=== PATIENT | male | born 1935 | race Asian ===

== ENCOUNTER 2021-07-08 11:35 | Emergency (ER) | payer MEDICARE, OTHER ==
[~2021-07-08] VITALS: Ht 149.9 cm; Wt 60.0 kg
[~2021-07-08 11:35] MED LIST: TAMS-13 PO
[2021-07-08 11:48] VITALS: BP 195/107
== END 2021-07-08 12:53 | disposition home or self-care (01) ==
LOC: EMS 11:35 → EDBD 11:35 → EMS 12:53
DX: R33.9 Retention of urine, unspecified (principal); E11.9 Type 2 diabetes mellitus without complications; I10 Essential (primary) hypertension; F17.210 Nicotine dependence, cigarettes, uncomplicated
CPT/HCPCS: 82962; 99283

== ENCOUNTER 2021-07-12 10:50 | Emergency (ER) | payer MEDICARE, OTHER ==
[~2021-07-12] VITALS: Ht 162.6 cm; Wt 60.9 kg
[2021-07-12 12:39] VITALS: BP 147/90
== END 2021-07-12 12:49 | disposition home or self-care (01) ==
LOC: EMS 10:52
DX: R33.9 Retention of urine, unspecified (principal); I10 Essential (primary) hypertension; E11.9 Type 2 diabetes mellitus without complications; F17.210 Nicotine dependence, cigarettes, uncomplicated; Z79.899 Other long term (current) drug therapy
CPT/HCPCS: 99281; 99284; Z7502

== ENCOUNTER 2022-07-05 09:38 | Emergency (ER) | payer MEDICARE, OTHER ==
[~2022-07-05] VITALS: Ht 165.1 cm; Wt 63.6 kg
[2022-07-05 10:25] VITALS: BP 180/98
[2022-07-05 10:25] LABS: GLUCOSE,POINT OF CARE 86 MG/DL (70-110)
[2022-07-05 13:06] LABS: APPEARANCE,URINE CLEAR (CLEAR); BILIRUBIN,URINE NEGATIVE (NEGATIVE); GLUCOSE, URINE (UA) NEGATIVE (NEGATIVE); KETONES,URINE NEGATIVE (NEGATIVE); LEUKOCYTE ESTERASE ,URINE LARGE (NEGATIVE); NITRATE,URINE NEGATIVE (NEGATIVE); OCCULT BLOOD,URINE SMALL (NEGATIVE); PROTEIN,URINE NEGATIVE (NEGATIVE); SPECIFIC GRAVITIY, URINE 1.007 (1.003-1.030); UROBILINOGEN,URINE <=1.0 mg/dL (<=1.0)
[2022-07-05 13:20] LABS: BACTERIA,URINE Many /HPF (None Seen)
[2022-07-05] MEDS ORDERED: CEPHALEXIN MONOHYDRATE 500 MG CAPSULE PO ONE (13:30)
[2022-07-05] MEDS ORDERED: CEPH-558 PO (13:33)
== END 2022-07-05 14:10 | disposition home or self-care (01) ==
LOC: EMS 09:39
DX: N39.0 Urinary tract infection, site not specified (principal); Z46.6 Encounter for fitting and adjustment of urinary device; F17.210 Nicotine dependence, cigarettes, uncomplicated; E11.9 Type 2 diabetes mellitus without complications; I10 Essential (primary) hypertension; N40.1 Benign prostatic hyperplasia with lower urinary tract symptoms; Z89.029 Acquired absence of unspecified finger(s)
CPT/HCPCS: 81001; 82962; 87086; 87186; 99283

== ENCOUNTER 2022-10-19 09:08 | Inpatient (IN) | payer MEDICARE, OTHER ==
[~2022-10-19] VITALS: Ht 170.2 cm; Wt 54.9 kg
[~2022-10-19 09:08] MED LIST changes: +CEPH-558 PO; -TAMS-13 PO
[2022-10-19] MEDS ORDERED: ACETAMINOPHEN 1000 MG/ISO-OSM 100 ML IV ONE (09:30)
[2022-10-19] MEDS ORDERED: 0.9% SODIUM CHLORIDE 10 ML SYRINGE IVP PRN ×2 (09:30→13:00)
[2022-10-19] MEDS ORDERED: SODIUM CHLORIDE 0.9% 1,000 ML IV ONE (09:30)
[2022-10-19] MEDS ORDERED: CefTRIAXone 1 GM/DEXTROSE 50 ML IV ONE (09:45)
[2022-10-19 09:53] LABS: BASOPHILS % (AUTO) 0.4 % (0.0-2.0); HEMATOCRIT 42.4 % (41-53); HEMOGLOBIN 13.9 g/dL (13.5-17.5); LYMPHOCYTES # (AUTO) 0.9 K/uL (1.0-4.8); LYMPHOCYTES % (AUTO) 12.5 % (22.0-44.0); MEAN CORPUSCULAR HEMOGLOBIN 23.2 pg (26.0-34.0); MEAN CORPUSCULAR HGB CONC 32.8 G/dL (31.0-37.0); MEAN CORPUSCULAR VOLUME 71 fL (80-100); MONOCYTES % (AUTO) 14.5 % (2.0-9.0); NEUTROPHILS # (AUTO) 4.8 K/uL (1.8-7.7); NEUTROPHILS % (AUTO) 69.6 % (40.0-70.0); PLATELET COUNT (AUTO) 299 K/uL (150-450); RED BLOOD CELL COUNT(AUTO) 5.99 MIL/uL (4.50-5.90); RED CELL DISTRIBUTION WIDTH 16.6 % (11.5-14.5)
[2022-10-19 09:56] LABS: PROTHROMBIN TIME 10.2 SEC (9.4-11.6)
[2022-10-19 10:03] LABS: COVID AG,FIA SOURCE NASOPHARYNGEAL
[2022-10-19 10:05] LABS: B-TYPE NATRIURETIC PEPTIDE 111 pg/mL (0-100)
[2022-10-19 10:17] LABS: ANION GAP 9 mmol/L (8-16); CARBON DIOXIDE 27 mmol/L (22-29); CHLORIDE 98 mmol/L (98-107); CREATININE 1.13 mg/dL (0.60-1.30); GLUCOSE,RANDOM 164 mg/dL (70-110); POTASSIUM 3.6 mmol/L (3.5-5.1); SODIUM SERUM 134 mmol/L (136-145); UREA NITROGEN, BLOOD 10 mg/dL (7-18)
[2022-10-19 10:21] LABS: GLOMERULAR FILTR. RATE CALC > 60 mL/min (>60)
[2022-10-19 10:22] LABS: ALANINE AMINOTRANSFERASE 243 U/L (12-78); ALBUMIN 3.3 g/dL (3.4-5.0); ALKALINE PHOSPHATASE 242 U/L (46-116); ASPARTATE AMINOTRANSFERASE 121 U/L (15-37); BILIRUBIN,TOTAL 2.3 mg/dL (0.1-1.0); CREATINE KINASE, TOTAL ONLY 32 U/L (39-308); PHOSPHORUS 2.4 mg/dL (2.5-4.9); TOTAL PROTEIN, SERUM 7.9 g/dL (6.4-8.2)
[2022-10-19 10:24] LABS: LACTIC ACID 1.5 mmol/L (0.4-2.0)
[2022-10-19 10:36] LABS: APPEARANCE,URINE HAZY (CLEAR); BILIRUBIN,URINE NEGATIVE (NEGATIVE); GLUCOSE, URINE (UA) NEGATIVE (NEGATIVE); KETONES,URINE NEGATIVE (NEGATIVE); LEUKOCYTE ESTERASE ,URINE MODERATE (NEGATIVE); NITRATE,URINE NEGATIVE (NEGATIVE); OCCULT BLOOD,URINE MODERATE (NEGATIVE); PROTEIN,URINE 30-70 mg/dL (NEGATIVE); SPECIFIC GRAVITIY, URINE 1.017 (1.003-1.030)
[2022-10-19 10:36] LABS: INFLUENZA TYPE A NEGATIVE FOR TYPE A (NEGATIVE); INFLUENZA TYPE B NEGATIVE FOR TYPE B (NEGATIVE)
[2022-10-19 11:14] LABS: SQUAMOUS EPITHELIAL CELL,UR Few /LPF (None Seen)
[2022-10-19 11:16] LABS: BACTERIA,URINE Many /HPF (None Seen)
[2022-10-19] MEDS ORDERED: SODIUM CHLORIDE 0.9% 1,300 ML IV ONE (12:00)
[2022-10-19] MEDS ORDERED: ONDANSETRON HCL 4 MG/2 ML VIAL IVP PRN ×2 (13:00→18:45)
[2022-10-19] MEDS ORDERED: HydrALAZINE HCL 20 MG/ML VIAL IVP PRN (14:45)
[2022-10-19] MEDS ORDERED: BISACODYL 10 MG RECTAL RECTAL SUPPOSITORY PR PRN (18:45)
[2022-10-19] MEDS ORDERED: MAGNESIUM HYDROXIDE SUSPENSION 30 ML UDCUP PO PRN (18:45)
[2022-10-19] MEDS ORDERED: MORPHINE SULFATE 2 MG/ML SYRINGE IVP PRN (18:45)
[2022-10-19] MEDS ORDERED: IPRATROPIUM BROMIDE 0.5 MG/2.5 ML NEB SOLUTION NEB PRN (18:45)
[2022-10-19] MEDS ORDERED: ALBUTEROL SULFATE 2.5 MG/0.5 ML NEB SOLUTION NEB PRN (18:45)
[2022-10-19] MEDS ORDERED: ACETAMINOPHEN 325 MG TABLET PO PRN (18:45)
[2022-10-19] MEDS ORDERED: ZOLPIDEM TARTRATE 5 MG TABLET PO PRN (18:45)
[2022-10-19] MEDS ORDERED: REMDESIVIR 200 MG in SODIUM CHLORIDE 0.9% 250 ML IV ONE (19:00)
[2022-10-19 19:46] VITALS: BP 123/78
[2022-10-19] MEDS: DOCUSATE SODIUM 100 MG CAPSULE PO SCH (20:53)
[2022-10-19] MEDS ORDERED: GuaiFENesin/D-METHORPHAN/PHENYLEPH 5 ML LIQUID ORAL.SYG PO PRN (23:45)
[2022-10-19] MEDS: HEPARIN SODIUM,PORCINE 5,000 UNITS/ML VIAL SQ SCH (23:54)
[2022-10-20 00:27] VITALS: BP 151/89
[2022-10-20 04:53] VITALS: BP 152/85
[2022-10-20 08:19] LABS: BASOPHILS % (AUTO) 0.4 % (0.0-2.0); EOSINOPHILS % (AUTO) 0.5 % (1.0-6.0); HEMATOCRIT 41.6 % (41-53); HEMOGLOBIN 13.5 g/dL (13.5-17.5); LYMPHOCYTES # (AUTO) 1.2 K/uL (1.0-4.8); LYMPHOCYTES % (AUTO) 22.8 % (22.0-44.0); MEAN CORPUSCULAR HEMOGLOBIN 23.1 pg (26.0-34.0); MEAN CORPUSCULAR HGB CONC 32.4 G/dL (31.0-37.0); MEAN CORPUSCULAR VOLUME 71 fL (80-100); MONOCYTES % (AUTO) 18.6 % (2.0-9.0); NEUTROPHILS % (AUTO) 57.7 % (40.0-70.0); PLATELET COUNT (AUTO) 279 K/uL (150-450); RED BLOOD CELL COUNT(AUTO) 5.84 MIL/uL (4.50-5.90); RED CELL DISTRIBUTION WIDTH 16.5 % (11.5-14.5)
[2022-10-20 08:27] LABS: ALANINE AMINOTRANSFERASE 211 U/L (12-78); ALBUMIN 2.8 g/dL (3.4-5.0); ALKALINE PHOSPHATASE 205 U/L (46-116); ANION GAP 2 mmol/L (8-16); ASPARTATE AMINOTRANSFERASE 120 U/L (15-37); BILIRUBIN,TOTAL 1.8 mg/dL (0.1-1.0); CALCIUM, TOTAL 8.8 mg/dL (8.8-10.5); CARBON DIOXIDE 29 mmol/L (22-29); CHLORIDE 99 mmol/L (98-107); CREATININE 0.98 mg/dL (0.60-1.30); GLUCOSE,RANDOM 84 mg/dL (70-110); POTASSIUM 4.1 mmol/L (3.5-5.1); SODIUM SERUM 130 mmol/L (136-145); UREA NITROGEN, BLOOD 10 mg/dL (7-18)
[2022-10-20 08:28] LABS: GLOMERULAR FILTR. RATE CALC > 60 mL/min (>60)
[2022-10-20 08:37] VITALS: BP 152/90
[2022-10-20] MEDS: DOCUSATE SODIUM 100 MG CAPSULE PO SCH ×2 (09:32→20:26)
[2022-10-20] MEDS: LEVOFLOXACIN 500 MG TABLET PO SCH (09:32)
[2022-10-20] MEDS: PANTOPRAZOLE SODIUM 40 MG/VIAL IVP SCH (09:32)
[2022-10-20] MEDS: HEPARIN SODIUM,PORCINE 5,000 UNITS/ML VIAL SQ SCH ×3 (09:32→23:36)
[2022-10-20] MEDS: AmLODIPine BESYLATE 5 MG TABLET PO SCH (11:18)
[2022-10-20 12:15] VITALS: BP 128/74
[2022-10-20 15:50] VITALS: BP 126/74
[2022-10-20] MEDS: REMDESIVIR 100 MG in SODIUM CHLORIDE 0.9% 250 ML IV SCH (20:26)
[2022-10-20 20:28] VITALS: BP 134/76
[2022-10-21 00:11] VITALS: BP 151/80
[2022-10-21 05:30] VITALS: BP 134/72
[2022-10-21 06:46] LABS: ALANINE AMINOTRANSFERASE 171 U/L (12-78); ALBUMIN 2.5 g/dL (3.4-5.0); ALKALINE PHOSPHATASE 175 U/L (46-116); ANION GAP 4 mmol/L (8-16); ASPARTATE AMINOTRANSFERASE 97 U/L (15-37); BILIRUBIN,TOTAL 1.4 mg/dL (0.1-1.0); CALCIUM, TOTAL 8.4 mg/dL (8.8-10.5); CARBON DIOXIDE 29 mmol/L (22-29); CHLORIDE 102 mmol/L (98-107); CREATININE 0.93 mg/dL (0.60-1.30); GLUCOSE,RANDOM 80 mg/dL (70-110); POTASSIUM 3.8 mmol/L (3.5-5.1); SODIUM SERUM 135 mmol/L (136-145); TOTAL PROTEIN, SERUM 6.2 g/dL (6.4-8.2); UREA NITROGEN, BLOOD 13 mg/dL (7-18)
[2022-10-21 06:48] LABS: GLOMERULAR FILTR. RATE CALC > 60 mL/min (>60)
[2022-10-21 08:17] VITALS: BP 153/80
[2022-10-21] MEDS: PANTOPRAZOLE SODIUM 40 MG/VIAL IVP SCH (08:41)
[2022-10-21] MEDS: AmLODIPine BESYLATE 5 MG TABLET PO SCH (08:41)
[2022-10-21] MEDS: HYDROCODONE/ACETAMINOPHEN 5-325 MG TABLET PO PRN (08:41)
[2022-10-21] MEDS: DOCUSATE SODIUM 100 MG CAPSULE PO SCH ×2 (08:41→19:54)
[2022-10-21] MEDS: HEPARIN SODIUM,PORCINE 5,000 UNITS/ML VIAL SQ SCH ×2 (08:41→16:33)
[2022-10-21] MEDS: LEVOFLOXACIN 500 MG TABLET PO SCH (08:41)
[2022-10-21 12:05] VITALS: BP 131/72
[2022-10-21 15:30] VITALS: BP 127/74
[2022-10-21] MEDS: REMDESIVIR 100 MG in SODIUM CHLORIDE 0.9% 250 ML IV SCH (19:54)
[2022-10-21 20:22] VITALS: BP 129/76
[2022-10-22] MEDS: HEPARIN SODIUM,PORCINE 5,000 UNITS/ML VIAL SQ SCH ×3 (00:09→16:49)
[2022-10-22 04:40] VITALS: BP 135/78
[2022-10-22 06:06] LABS: ALANINE AMINOTRANSFERASE 152 U/L (12-78); ALBUMIN 2.5 g/dL (3.4-5.0); ALKALINE PHOSPHATASE 171 U/L (46-116); ANION GAP 2 mmol/L (8-16); ASPARTATE AMINOTRANSFERASE 91 U/L (15-37); BILIRUBIN,TOTAL 1.3 mg/dL (0.1-1.0); CALCIUM, TOTAL 8.5 mg/dL (8.8-10.5); CARBON DIOXIDE 30 mmol/L (22-29); CHLORIDE 101 mmol/L (98-107); CREATININE 0.95 mg/dL (0.60-1.30); GLUCOSE,RANDOM 88 mg/dL (70-110); POTASSIUM 3.9 mmol/L (3.5-5.1); SODIUM SERUM 133 mmol/L (136-145); TOTAL PROTEIN, SERUM 6.5 g/dL (6.4-8.2); UREA NITROGEN, BLOOD 12 mg/dL (7-18)
[2022-10-22 06:10] LABS: GLOMERULAR FILTR. RATE CALC > 60 mL/min (>60)
[2022-10-22 08:20] VITALS: BP 130/70
[2022-10-22] MEDS: LEVOFLOXACIN 500 MG TABLET PO SCH (08:37)
[2022-10-22] MEDS: PANTOPRAZOLE SODIUM 40 MG/VIAL IVP SCH (08:37)
[2022-10-22] MEDS: AmLODIPine BESYLATE 5 MG TABLET PO SCH (08:38)
[2022-10-22] MEDS: DOCUSATE SODIUM 100 MG CAPSULE PO SCH ×2 (08:38→20:16)
[2022-10-22 11:39] VITALS: BP 128/68
[2022-10-22 15:24] VITALS: BP 120/64
[2022-10-22] MEDS: REMDESIVIR 100 MG in SODIUM CHLORIDE 0.9% 250 ML IV SCH (20:16)
[2022-10-22 21:10] VITALS: BP 145/76
[2022-10-23] VITALS (7 sets, daily range): BP systolic 137–162; BP diastolic 69–86
[2022-10-23] MEDS: HEPARIN SODIUM,PORCINE 5,000 UNITS/ML VIAL SQ SCH ×3 (00:16→16:47)
[2022-10-23 06:34] LABS: ALANINE AMINOTRANSFERASE 135 U/L (12-78); ALBUMIN 2.5 g/dL (3.4-5.0); ALKALINE PHOSPHATASE 166 U/L (46-116); ANION GAP 3 mmol/L (8-16); ASPARTATE AMINOTRANSFERASE 72 U/L (15-37); BILIRUBIN,TOTAL 1.3 mg/dL (0.1-1.0); CALCIUM, TOTAL 8.4 mg/dL (8.8-10.5); CARBON DIOXIDE 30 mmol/L (22-29); CHLORIDE 102 mmol/L (98-107); CREATININE 0.97 mg/dL (0.60-1.30); GLUCOSE,RANDOM 92 mg/dL (70-110); POTASSIUM 3.6 mmol/L (3.5-5.1); SODIUM SERUM 135 mmol/L (136-145); TOTAL PROTEIN, SERUM 6.7 g/dL (6.4-8.2); UREA NITROGEN, BLOOD 12 mg/dL (7-18)
[2022-10-23 06:37] LABS: GLOMERULAR FILTR. RATE CALC > 60 mL/min (>60)
[2022-10-23] MEDS: PANTOPRAZOLE SODIUM 40 MG/VIAL IVP SCH (08:32)
[2022-10-23] MEDS: AmLODIPine BESYLATE 5 MG TABLET PO SCH (08:32)
[2022-10-23] MEDS: DOCUSATE SODIUM 100 MG CAPSULE PO SCH ×2 (08:32→20:48)
[2022-10-23] MEDS: LEVOFLOXACIN 500 MG TABLET PO SCH (08:32)
[2022-10-23] MEDS ORDERED: SODIUM CHLORIDE 0.9% 500 ML IV ONE (18:46)
[2022-10-23] MEDS: REMDESIVIR 100 MG in SODIUM CHLORIDE 0.9% 250 ML IV SCH (18:53)
[2022-10-24] MEDS: HEPARIN SODIUM,PORCINE 5,000 UNITS/ML VIAL SQ SCH ×2 (01:13→08:30)
[2022-10-24 05:56] VITALS: BP 130/73
[2022-10-24 08:00] VITALS: BP 140/80
[2022-10-24] MEDS: DOCUSATE SODIUM 100 MG CAPSULE PO SCH (08:31)
[2022-10-24] MEDS: PANTOPRAZOLE SODIUM 40 MG/VIAL IVP SCH (08:31)
[2022-10-24] MEDS: LEVOFLOXACIN 500 MG TABLET PO SCH (08:32)
[2022-10-24] MEDS: HYDROCODONE/ACETAMINOPHEN 5-325 MG TABLET PO PRN ×2 (08:33→12:48)
[2022-10-24] MEDS: AmLODIPine BESYLATE 5 MG TABLET PO SCH (08:33)
[2022-10-24] MEDS ORDERED: LEVO500 PO (10:06)
[2022-10-24] MEDS ORDERED: AMLO-257 PO (10:06)
[2022-10-24 11:01] LABS: ALANINE AMINOTRANSFERASE 127 U/L (12-78); ALBUMIN 2.7 g/dL (3.4-5.0); ALKALINE PHOSPHATASE 165 U/L (46-116); ANION GAP 7 mmol/L (8-16); ASPARTATE AMINOTRANSFERASE 66 U/L (15-37); BILIRUBIN,TOTAL 1.3 mg/dL (0.1-1.0); CALCIUM, TOTAL 8.3 mg/dL (8.8-10.5); CARBON DIOXIDE 29 mmol/L (22-29); CHLORIDE 100 mmol/L (98-107); CREATININE 0.98 mg/dL (0.60-1.30); GLUCOSE,RANDOM 144 mg/dL (70-110); POTASSIUM 3.3 mmol/L (3.5-5.1); SODIUM SERUM 136 mmol/L (136-145); TOTAL PROTEIN, SERUM 7.1 g/dL (6.4-8.2); UREA NITROGEN, BLOOD 12 mg/dL (7-18)
[2022-10-24 11:03] LABS: GLOMERULAR FILTR. RATE CALC > 60 mL/min (>60)
[2022-10-24 11:26] VITALS: BP 122/78
== END 2022-10-24 14:30 | disposition home or self-care (01) | DRG 177 ==
LOC: EMS 09:11 → 5S 15:52
PROVIDERS: ADMIT Hospitalist; ATTEND Hospitalist
PROC: XW033E5 Introduction of Remdesivir Anti-infective into Peripheral Vein, Percutaneous Approach, New Technology Group 5 (ICD-10-PCS; principal; 2022-10-19)
DX: U07.1 COVID-19 (principal); E43 Unspecified severe protein-calorie malnutrition; J12.82 Pneumonia due to coronavirus disease 2019; N39.0 Urinary tract infection, site not specified; E87.1 Hypo-osmolality and hyponatremia; Z68.1 Body mass index [BMI] 19.9 or less, adult; R65.10 Systemic inflammatory response syndrome (SIRS) of non-infectious origin without acute organ dysfunction; I10 Essential (primary) hypertension; E11.9 Type 2 diabetes mellitus without complications; N40.0 Benign prostatic hyperplasia without lower urinary tract symptoms; R74.8 Abnormal levels of other serum enzymes; Z87.891 Personal history of nicotine dependence; Z79.899 Other long term (current) drug therapy; R33.9 Retention of urine, unspecified
CPT/HCPCS: 71045; 80053; 81001; 82550; 83036; 83605; 83735; 83880; 84100; 84145; 84484; 85025; 85610; 87040; 87086; 87186; 87804; 93005; 99291; C9113; J0131; J0360; J0696; J1644; J7040; J7050; Q9967; 36415-L1; 36415-TC

== ENCOUNTER 2022-11-08 08:42 | Emergency (ER) | payer MEDICARE, OTHER ==
[~2022-11-08] VITALS: Ht 170.2 cm; Wt 68.2 kg
[~2022-11-08 08:42] MED LIST changes: +AMLO-257 PO; -CEPH-558 PO; +LEVO500 PO
[2022-11-08 12:45] VITALS: BP 171/101
== END 2022-11-08 13:37 | disposition home or self-care (01) ==
LOC: EMS 08:49
DX: T83.84XD Pain due to genitourinary prosthetic devices, implants and grafts, subsequent encounter (principal); E11.9 Type 2 diabetes mellitus without complications; I10 Essential (primary) hypertension; N40.0 Benign prostatic hyperplasia without lower urinary tract symptoms; F17.210 Nicotine dependence, cigarettes, uncomplicated; Z89.029 Acquired absence of unspecified finger(s); Z46.6 Encounter for fitting and adjustment of urinary device
CPT/HCPCS: 99281; Z7502

== ENCOUNTER 2022-11-26 12:31 | Emergency (ER) | payer MEDICARE, OTHER ==
[~2022-11-26] VITALS: Ht 154.9 cm; Wt 54.5 kg
[2022-11-26 12:33] VITALS: BP 112/79
[2022-11-27] MEDS ORDERED: TAMS-13 PO (08:46)
[2022-11-27] MEDS ORDERED: CEPH-558 PO (13:51)
[2022-11-27] MEDS ORDERED: PHEN-846 PO (13:51)
== END 2022-11-26 16:46 | disposition home or self-care (01) ==
LOC: EMS 12:33
DX: N40.0 Benign prostatic hyperplasia without lower urinary tract symptoms (principal); E11.9 Type 2 diabetes mellitus without complications; I10 Essential (primary) hypertension; F17.210 Nicotine dependence, cigarettes, uncomplicated; Z46.6 Encounter for fitting and adjustment of urinary device
CPT/HCPCS: 51701; 99283

== ENCOUNTER 2022-11-27 08:38 | Emergency (ER) | payer MEDICARE, OTHER ==
[~2022-11-27] VITALS: Ht 167.6 cm; Wt 63.6 kg
[~2022-11-27 08:38] MED LIST changes: -LEVO500 PO
[2022-11-27] MEDS ORDERED: TAMS-13 PO (08:46)
[2022-11-27 10:50] LABS: BASOPHILS % (AUTO) 0.8 % (0.0-2.0); HEMATOCRIT 41.5 % (41-53); HEMOGLOBIN 13.3 g/dL (13.5-17.5); LYMPHOCYTES # (AUTO) 1.1 K/uL (1.0-4.8); LYMPHOCYTES % (AUTO) 21.4 % (22.0-44.0); MEAN CORPUSCULAR HEMOGLOBIN 22.7 pg (26.0-34.0); MEAN CORPUSCULAR HGB CONC 32.1 G/dL (31.0-37.0); MEAN CORPUSCULAR VOLUME 71 fL (80-100); MONOCYTES # (AUTO) 0.5 K/uL (0.1-1.0); MONOCYTES % (AUTO) 9.6 % (2.0-9.0); NEUTROPHILS # (AUTO) 3.4 K/uL (1.8-7.7); NEUTROPHILS % (AUTO) 63.2 % (40.0-70.0); PLATELET COUNT (AUTO) 314 K/uL (150-450); RED BLOOD CELL COUNT(AUTO) 5.87 MIL/uL (4.50-5.90); RED CELL DISTRIBUTION WIDTH 16.1 % (11.5-14.5)
[2022-11-27 10:59] LABS: ANION GAP 3 mmol/L (8-16); CALCIUM, TOTAL 8.5 mg/dL (8.8-10.5); CARBON DIOXIDE 32 mmol/L (22-29); CHLORIDE 105 mmol/L (98-107); GLOMERULAR FILTR. RATE CALC > 60 mL/min (>60); GLUCOSE,RANDOM 86 mg/dL (70-110); POTASSIUM 4.1 mmol/L (3.5-5.1); SODIUM SERUM 140 mmol/L (136-145); UREA NITROGEN, BLOOD 13 mg/dL (7-18)
[2022-11-27 11:05] LABS: ALANINE AMINOTRANSFERASE 23 U/L (12-78); ALBUMIN 3.1 g/dL (3.4-5.0); ALKALINE PHOSPHATASE 99 U/L (46-116); ASPARTATE AMINOTRANSFERASE 23 U/L (15-37); BILIRUBIN,TOTAL 0.5 mg/dL (0.1-1.0); LIPASE 148 U/L (73-393); TOTAL PROTEIN, SERUM 7.9 g/dL (6.4-8.2)
[2022-11-27 12:01] LABS: APPEARANCE,URINE TURBID (CLEAR); BILIRUBIN,URINE NEGATIVE (NEGATIVE); GLUCOSE, URINE (UA) NEGATIVE (NEGATIVE); KETONES,URINE NEGATIVE (NEGATIVE); LEUKOCYTE ESTERASE ,URINE MODERATE (NEGATIVE); NITRATE,URINE POSITIVE (NEGATIVE); OCCULT BLOOD,URINE LARGE (NEGATIVE); PROTEIN,URINE 100-200,SEE CONFIRM mg/dL (NEGATIVE); SPECIFIC GRAVITIY, URINE 1.012 (1.003-1.030); UROBILINOGEN,URINE <=1.0 mg/dL (<=1.0)
[2022-11-27 12:10] LABS: SULFOSALICYLIC ACID,URINE 3+ (Negative)
[2022-11-27 12:11] LABS: BACTERIA,URINE Few /HPF (None Seen); WBC,URINE 26-50 /HPF (0-5)
[2022-11-27 12:12] LABS: RBC,URINE 26-50 /HPF (0-2)
[2022-11-27 12:43] VITALS: BP 213/98
[2022-11-27] MEDS ORDERED: CEPHALEXIN MONOHYDRATE 500 MG CAPSULE PO ONE (13:00)
[2022-11-27] MEDS ORDERED: AmLODIPine BESYLATE 5 MG TABLET PO ONE (13:00)
[2022-11-27] MEDS ORDERED: CEPH-558 PO (13:51)
[2022-11-27] MEDS ORDERED: PHEN-846 PO (13:51)
== END 2022-11-27 15:19 | disposition home or self-care (01) ==
LOC: EMS 08:39
DX: N30.90 Cystitis, unspecified without hematuria (principal); I10 Essential (primary) hypertension; E11.9 Type 2 diabetes mellitus without complications; N40.0 Benign prostatic hyperplasia without lower urinary tract symptoms; F17.210 Nicotine dependence, cigarettes, uncomplicated; Z89.029 Acquired absence of unspecified finger(s)
CPT/HCPCS: 80053; 81001; 81002; 83690; 84484; 85025; 87086; 87186; 99283

== ENCOUNTER 2022-12-14 08:57 | Emergency (ER) | payer MEDICARE, OTHER ==
[~2022-12-14] VITALS: Ht 162.6 cm; Wt 59.1 kg
[~2022-12-14 08:57] MED LIST changes: +CEPH-558 PO; +PHEN-846 PO; +TAMS-13 PO
[2022-12-14] MEDS ORDERED: LIDOCAINE/PF 1% 2 ML VIAL IM ONE (11:15)
[2022-12-14] MEDS ORDERED: CefTRIAXone SODIUM 1 GM/VIAL IM ONE (11:15)
[2022-12-14 11:54] VITALS: BP 133/82
== END 2022-12-14 14:18 | disposition home or self-care (01) ==
LOC: EMS 09:16
DX: R31.9 Hematuria, unspecified (principal); E11.9 Type 2 diabetes mellitus without complications; I10 Essential (primary) hypertension; F17.210 Nicotine dependence, cigarettes, uncomplicated; N40.0 Benign prostatic hyperplasia without lower urinary tract symptoms; Z89.029 Acquired absence of unspecified finger(s)
CPT/HCPCS: 99284; 82962; 96372; J0696; J3490

== ENCOUNTER 2022-12-27 09:33 | Emergency (ER) | payer MEDICARE, OTHER ==
[~2022-12-27] VITALS: Ht 165.1 cm; Wt 62.7 kg
[~2022-12-27 09:33] MED LIST changes: -CEPH-558 PO
[2022-12-27 11:04] VITALS: BP 159/97
== END 2022-12-27 11:08 | disposition home or self-care (01) ==
LOC: EMS 09:36
DX: R32 Unspecified urinary incontinence (principal); E11.9 Type 2 diabetes mellitus without complications; I10 Essential (primary) hypertension; F17.210 Nicotine dependence, cigarettes, uncomplicated; Z48.813 Encounter for surgical aftercare following surgery on the respiratory system
CPT/HCPCS: 51701; 99283

== ENCOUNTER 2022-12-27 14:47 | Emergency (ER) | payer MEDICARE, OTHER ==
[~2022-12-27] VITALS: Ht 165.1 cm; Wt 62.7 kg
[2022-12-27 17:37] VITALS: BP 199/115
== END 2022-12-27 18:11 | disposition home or self-care (01) ==
LOC: EMS 14:52
DX: R33.9 Retention of urine, unspecified (principal); E11.9 Type 2 diabetes mellitus without complications; I10 Essential (primary) hypertension; F17.210 Nicotine dependence, cigarettes, uncomplicated
CPT/HCPCS: 51702; 99284; Z7502

== ENCOUNTER 2023-01-11 09:48 | Emergency (ER) | payer MEDICARE, OTHER ==
[~2023-01-11] VITALS: Ht 167.6 cm; Wt 68.2 kg
[2023-01-11] MEDS ORDERED: SODIUM CHLORIDE 0.9% 1,000 ML IV ONE (10:30)
[2023-01-11 10:37] LABS: BASOPHILS % (AUTO) 0.2 % (0.0-2.0); EOSINOPHILS % (AUTO) 2.2 % (1.0-6.0); HEMATOCRIT 43.6 % (41-53); HEMOGLOBIN 14.2 g/dL (13.5-17.5); LYMPHOCYTES # (AUTO) 1.5 K/uL (1.0-4.8); MEAN CORPUSCULAR HEMOGLOBIN 23.2 pg (26.0-34.0); MEAN CORPUSCULAR HGB CONC 32.6 G/dL (31.0-37.0); MEAN CORPUSCULAR VOLUME 71 fL (80-100); MONOCYTES # (AUTO) 0.7 K/uL (0.1-1.0); MONOCYTES % (AUTO) 6.7 % (2.0-9.0); NEUTROPHILS # (AUTO) 7.8 K/uL (1.8-7.7); NEUTROPHILS % (AUTO) 75.9 % (40.0-70.0); PLATELET COUNT (AUTO) 352 K/uL (150-450); RED BLOOD CELL COUNT(AUTO) 6.13 MIL/uL (4.50-5.90); RED CELL DISTRIBUTION WIDTH 15.2 % (11.5-14.5)
[2023-01-11 10:41] LABS: COVID AG,FIA SOURCE NASOPHARYNGEAL
[2023-01-11 10:47] LABS: ANION GAP 8 mmol/L (8-16); CALCIUM, TOTAL 9.5 mg/dL (8.8-10.5); CARBON DIOXIDE 29 mmol/L (22-29); CHLORIDE 102 mmol/L (98-107); CREATININE 0.99 mg/dL (0.60-1.30); GLOMERULAR FILTR. RATE CALC > 60 mL/min (>60); GLUCOSE,RANDOM 107 mg/dL (70-110); POTASSIUM 3.2 mmol/L (3.5-5.1); SODIUM SERUM 139 mmol/L (136-145); UREA NITROGEN, BLOOD 12 mg/dL (7-18)
[2023-01-11 10:54] LABS: ALANINE AMINOTRANSFERASE 17 U/L (12-78); ALBUMIN 3.5 g/dL (3.4-5.0); ALKALINE PHOSPHATASE 91 U/L (46-116); ASPARTATE AMINOTRANSFERASE 20 U/L (15-37); BILIRUBIN,TOTAL 0.6 mg/dL (0.1-1.0); TOTAL PROTEIN, SERUM 8.7 g/dL (6.4-8.2)
[2023-01-11 11:11] LABS: B-TYPE NATRIURETIC PEPTIDE 109 pg/mL (0-100)
[2023-01-11 12:13] LABS: APPEARANCE,URINE HAZY (CLEAR); BILIRUBIN,URINE NEGATIVE (NEGATIVE); GLUCOSE, URINE (UA) NEGATIVE (NEGATIVE); KETONES,URINE NEGATIVE (NEGATIVE); LEUKOCYTE ESTERASE ,URINE LARGE (NEGATIVE); NITRATE,URINE NEGATIVE (NEGATIVE); OCCULT BLOOD,URINE LARGE (NEGATIVE); PROTEIN,URINE 30-70 mg/dL (NEGATIVE); SPECIFIC GRAVITIY, URINE 1.016 (1.003-1.030)
[2023-01-11 12:35] LABS: RBC,URINE 51-100 /HPF (0-2)
[2023-01-11 12:36] LABS: BACTERIA,URINE Moderate /HPF (None Seen); WBC,URINE 26-50 /HPF (0-5)
[2023-01-11 12:37] LABS: SQUAMOUS EPITHELIAL CELL,UR Moderate /LPF (None Seen)
[2023-01-11] MEDS ORDERED: CEPHALEXIN MONOHYDRATE 500 MG CAPSULE PO ONE (12:45)
[2023-01-11] MEDS ORDERED: CEPH-558 PO (12:48)
[2023-01-11 13:05] VITALS: BP 148/89
== END 2023-01-11 13:09 | disposition home or self-care (01) ==
LOC: EMS 09:52
DX: R33.9 Retention of urine, unspecified (principal); N39.0 Urinary tract infection, site not specified; E11.9 Type 2 diabetes mellitus without complications; I10 Essential (primary) hypertension; F17.210 Nicotine dependence, cigarettes, uncomplicated; N40.0 Benign prostatic hyperplasia without lower urinary tract symptoms; Z89.029 Acquired absence of unspecified finger(s); Z20.822 Contact with and (suspected) exposure to COVID-19
CPT/HCPCS: 99284; 96360; 87426; 80053; 81001; 83880; 84484; 85025; 36415; 87086; 87186; 93005; J7030

== ENCOUNTER 2023-01-12 09:52 | Emergency (ER) | payer MEDICARE, OTHER ==
[~2023-01-12] VITALS: Ht 167.6 cm; Wt 68.2 kg
[~2023-01-12 09:52] MED LIST changes: +CEPH-558 PO; -PHEN-846 PO; -TAMS-13 PO
[2023-01-12] MEDS ORDERED: ACETAMINOPHEN 325 MG TABLET PO ONE (12:30)
[2023-01-12] MEDS ORDERED: LIDOCAINE 2% VISCOUS 15 ML SOLUTION UDCUP TP ONE (12:30)
[2023-01-12 13:04] VITALS: BP 159/84
== END 2023-01-12 13:04 | disposition home or self-care (01) ==
LOC: EMS 09:52
DX: R33.9 Retention of urine, unspecified (principal); E11.9 Type 2 diabetes mellitus without complications; I10 Essential (primary) hypertension; F17.210 Nicotine dependence, cigarettes, uncomplicated; Z98.890 Other specified postprocedural states; Z96.0 Presence of urogenital implants
CPT/HCPCS: 99284; Z7502; Z7610

== ENCOUNTER 2023-01-13 16:22 | Inpatient (IN) | payer MEDICARE, OTHER ==
[~2023-01-13] VITALS: Ht 167.6 cm; Wt 68.2 kg
[2023-01-13] MEDS ORDERED: SODIUM CHLORIDE 0.9% 2,050 ML IV ONE (17:45)
[2023-01-13] MEDS ORDERED: 0.9% SODIUM CHLORIDE 10 ML SYRINGE IVP PRN (17:45)
[2023-01-13 18:03] LABS: APPEARANCE,URINE HAZY (CLEAR); BILIRUBIN,URINE NEGATIVE (NEGATIVE); GLUCOSE, URINE (UA) NEGATIVE (NEGATIVE); KETONES,URINE NEGATIVE (NEGATIVE); LEUKOCYTE ESTERASE ,URINE LARGE (NEGATIVE); NITRATE,URINE NEGATIVE (NEGATIVE); OCCULT BLOOD,URINE LARGE (NEGATIVE); PROTEIN,URINE 100-200,SEE CONFIRM mg/dL (NEGATIVE); SPECIFIC GRAVITIY, URINE 1.017 (1.003-1.030); UROBILINOGEN,URINE <=1.0 mg/dL (<=1.0)
[2023-01-13 18:08] LABS: BASOPHILS % (AUTO) 0.1 % (0.0-2.0); EOSINOPHILS % (AUTO) 0.6 % (1.0-6.0); HEMATOCRIT 38.1 % (41-53); LYMPHOCYTES # (AUTO) 0.8 K/uL (1.0-4.8); LYMPHOCYTES % (AUTO) 6.6 % (22.0-44.0); MEAN CORPUSCULAR HEMOGLOBIN 22.2 pg (26.0-34.0); MEAN CORPUSCULAR HGB CONC 31.6 G/dL (31.0-37.0); MEAN CORPUSCULAR VOLUME 71 fL (80-100); MONOCYTES # (AUTO) 0.8 K/uL (0.1-1.0); MONOCYTES % (AUTO) 6.2 % (2.0-9.0); NEUTROPHILS # (AUTO) 10.9 K/uL (1.8-7.7); PLATELET COUNT (AUTO) 329 K/uL (150-450); RED BLOOD CELL COUNT(AUTO) 5.41 MIL/uL (4.50-5.90); RED CELL DISTRIBUTION WIDTH 15.1 % (11.5-14.5)
[2023-01-13 18:09] LABS: SULFOSALICYLIC ACID,URINE 2+ (Negative)
[2023-01-13 18:10] LABS: ANION GAP 10 mmol/L (8-16); CARBON DIOXIDE 27 mmol/L (22-29); CHLORIDE 100 mmol/L (98-107); CREATININE 0.92 mg/dL (0.60-1.30); GLOMERULAR FILTR. RATE CALC > 60 mL/min (>60); GLUCOSE,RANDOM 106 mg/dL (70-110); NEUTROPHILS % (AUTO) 86.5 % (40.0-70.0); POTASSIUM 3.5 mmol/L (3.5-5.1); SODIUM SERUM 137 mmol/L (136-145); UREA NITROGEN, BLOOD 12 mg/dL (7-18)
[2023-01-13 18:11] LABS: PROTHROMBIN TIME 10.2 SEC (9.4-11.6)
[2023-01-13 18:15] LABS: BACTERIA,URINE Moderate /HPF (None Seen); RBC,URINE 51-100 /HPF (0-2); SQUAMOUS EPITHELIAL CELL,UR Rare /LPF (None Seen); WBC,URINE 51-100 /HPF (0-5)
[2023-01-13 18:16] LABS: ALANINE AMINOTRANSFERASE 13 U/L (12-78); ALBUMIN 3.1 g/dL (3.4-5.0); ALKALINE PHOSPHATASE 81 U/L (46-116); ASPARTATE AMINOTRANSFERASE 16 U/L (15-37); BILIRUBIN,TOTAL 0.5 mg/dL (0.1-1.0); TOTAL PROTEIN, SERUM 7.7 g/dL (6.4-8.2)
[2023-01-13 18:19] LABS: LACTIC ACID 0.7 mmol/L (0.4-2.0)
[2023-01-13] MEDS ORDERED: CefTRIAXone 1 GM/DEXTROSE 50 ML IV ONE (18:45)
[2023-01-13] MEDS ORDERED: ACETAMINOPHEN 325 MG TABLET PO PRN (20:30)
[2023-01-13] MEDS ORDERED: BISACODYL 10 MG RECTAL RECTAL SUPPOSITORY PR PRN (20:30)
[2023-01-13] MEDS ORDERED: MORPHINE SULFATE 2 MG/ML SYRINGE IVP PRN (20:30)
[2023-01-13] MEDS ORDERED: ONDANSETRON HCL 4 MG/2 ML VIAL IVP PRN (20:30)
[2023-01-13] MEDS ORDERED: ZOLPIDEM TARTRATE 5 MG TABLET PO PRN (20:30)
[2023-01-13] MEDS ORDERED: SODIUM CHLORIDE 0.9% 1,000 ML IV ONE (20:30)
[2023-01-13] MEDS ORDERED: MAGNESIUM HYDROXIDE SUSPENSION 30 ML UDCUP PO PRN (20:30)
[2023-01-13] MEDS: DOCUSATE SODIUM 100 MG CAPSULE PO SCH (22:05)
[2023-01-13] MEDS ORDERED: AmLODIPine BESYLATE 5 MG TABLET PO ONE (22:45)
[2023-01-13] MEDS: HEPARIN SODIUM,PORCINE 5,000 UNITS/ML VIAL SQ SCH (23:18)
[2023-01-14 03:26] LABS: COVID AG,FIA SOURCE NASAL SWAB
[2023-01-14 05:54] LABS: BASOPHILS % (AUTO) 0.3 % (0.0-2.0); EOSINOPHILS % (AUTO) 1.5 % (1.0-6.0); HEMATOCRIT 35.4 % (41-53); HEMOGLOBIN 11.5 g/dL (13.5-17.5); LYMPHOCYTES # (AUTO) 1.9 K/uL (1.0-4.8); LYMPHOCYTES % (AUTO) 15.7 % (22.0-44.0); MEAN CORPUSCULAR HEMOGLOBIN 22.8 pg (26.0-34.0); MEAN CORPUSCULAR HGB CONC 32.4 G/dL (31.0-37.0); MEAN CORPUSCULAR VOLUME 70 fL (80-100); MONOCYTES # (AUTO) 1.1 K/uL (0.1-1.0); NEUTROPHILS # (AUTO) 9.1 K/uL (1.8-7.7); NEUTROPHILS % (AUTO) 73.5 % (40.0-70.0); PLATELET COUNT (AUTO) 288 K/uL (150-450); RED BLOOD CELL COUNT(AUTO) 5.04 MIL/uL (4.50-5.90); RED CELL DISTRIBUTION WIDTH 14.7 % (11.5-14.5)
[2023-01-14 06:02] LABS: ANION GAP 5 mmol/L (8-16); CALCIUM, TOTAL 8.3 mg/dL (8.8-10.5); CARBON DIOXIDE 28 mmol/L (22-29); CHLORIDE 103 mmol/L (98-107); GLOMERULAR FILTR. RATE CALC > 60 mL/min (>60); GLUCOSE,RANDOM 92 mg/dL (70-110); POTASSIUM 3.4 mmol/L (3.5-5.1); SODIUM SERUM 136 mmol/L (136-145); UREA NITROGEN, BLOOD 8 mg/dL (7-18)
[2023-01-14] MEDS: PANTOPRAZOLE SODIUM 40 MG DR TABLET PO SCH (08:08)
[2023-01-14] MEDS: AmLODIPine BESYLATE 5 MG TABLET PO SCH (08:09)
[2023-01-14] MEDS: DOCUSATE SODIUM 100 MG CAPSULE PO SCH ×2 (08:09→20:39)
[2023-01-14] MEDS: HYDROCODONE/ACETAMINOPHEN 5-325 MG TABLET PO PRN (08:09)
[2023-01-14] MEDS: HEPARIN SODIUM,PORCINE 5,000 UNITS/ML VIAL SQ SCH ×3 (08:10→22:55)
[2023-01-14 09:34] VITALS: BP 145/76
[2023-01-14] MEDS ORDERED: POTASSIUM CHLORIDE 20 MEQ ER TABLET PO ONE (11:00)
[2023-01-14 16:01] VITALS: BP 146/80
[2023-01-14] MEDS ORDERED: CefTRIAXone 1 GM/DEXTROSE 50 ML IV SCH (18:00)
[2023-01-14 20:00] VITALS: BP 137/74
[2023-01-15 04:00] VITALS: BP 140/78
[2023-01-15 07:24] LABS: BASOPHILS % (AUTO) 0.4 % (0.0-2.0); EOSINOPHILS % (AUTO) 4.1 % (1.0-6.0); HEMATOCRIT 37.9 % (41-53); HEMOGLOBIN 12.7 g/dL (13.5-17.5); LYMPHOCYTES # (AUTO) 1.5 K/uL (1.0-4.8); LYMPHOCYTES % (AUTO) 13.9 % (22.0-44.0); MEAN CORPUSCULAR HEMOGLOBIN 23.5 pg (26.0-34.0); MEAN CORPUSCULAR HGB CONC 33.5 G/dL (31.0-37.0); MEAN CORPUSCULAR VOLUME 70 fL (80-100); MONOCYTES # (AUTO) 1.1 K/uL (0.1-1.0); MONOCYTES % (AUTO) 10.2 % (2.0-9.0); NEUTROPHILS # (AUTO) 7.6 K/uL (1.8-7.7); NEUTROPHILS % (AUTO) 71.4 % (40.0-70.0); PLATELET COUNT (AUTO) 344 K/uL (150-450); RED BLOOD CELL COUNT(AUTO) 5.41 MIL/uL (4.50-5.90); RED CELL DISTRIBUTION WIDTH 15.3 % (11.5-14.5)
[2023-01-15 07:35] VITALS: BP 154/82
[2023-01-15 07:35] LABS: ANION GAP 5 mmol/L (8-16); CALCIUM, TOTAL 9.2 mg/dL (8.8-10.5); CARBON DIOXIDE 29 mmol/L (22-29); CHLORIDE 101 mmol/L (98-107); CREATININE 0.85 mg/dL (0.60-1.30); GLOMERULAR FILTR. RATE CALC > 60 mL/min (>60); GLUCOSE,RANDOM 94 mg/dL (70-110); POTASSIUM 4.2 mmol/L (3.5-5.1); SODIUM SERUM 135 mmol/L (136-145); UREA NITROGEN, BLOOD 10 mg/dL (7-18)
[2023-01-15] MEDS: AmLODIPine BESYLATE 5 MG TABLET PO SCH (08:31)
[2023-01-15] MEDS: DOCUSATE SODIUM 100 MG CAPSULE PO SCH (08:31)
[2023-01-15] MEDS: PANTOPRAZOLE SODIUM 40 MG DR TABLET PO SCH (08:31)
[2023-01-15] MEDS: HEPARIN SODIUM,PORCINE 5,000 UNITS/ML VIAL SQ SCH (08:32)
[2023-01-15] MEDS: HYDROCODONE/ACETAMINOPHEN 5-325 MG TABLET PO PRN (08:43)
[2023-01-15] MEDS ORDERED: LEVO-72 PO (10:33)
[2023-01-15 15:34] VITALS: BP 121/66
[2023-01-15 17:11] LABS: GLUCOMETER DEV NAME(LOC) 6S.1B; GLUCOSE,POINT OF CARE 178 MG/DL (70-110)
== END 2023-01-15 17:36 | disposition home or self-care (01) | DRG 698 ==
LOC: EMS 16:23 → 6N 01-14 05:28
PROVIDERS: ADMIT Internal Medicine; ATTEND Internal Medicine
DX: T83.518A Infection and inflammatory reaction due to other urinary catheter, initial encounter (principal); A41.9 Sepsis, unspecified organism; N39.0 Urinary tract infection, site not specified; F17.200 Nicotine dependence, unspecified, uncomplicated; E11.9 Type 2 diabetes mellitus without complications; I10 Essential (primary) hypertension; N40.1 Benign prostatic hyperplasia with lower urinary tract symptoms; R33.8 Other retention of urine; Z20.822 Contact with and (suspected) exposure to COVID-19; Z91.199 Patient's noncompliance with other medical treatment and regimen due to unspecified reason; Z79.899 Other long term (current) drug therapy; Z87.440 Personal history of urinary (tract) infections; Y83.9 Surgical procedure, unspecified as the cause of abnormal reaction of the patient, or of later complication, without mention of misadventure at the time of the procedure; Y92.89 Other specified places as the place of occurrence of the external cause
CPT/HCPCS: 80048; 80053; 81001; 81002; 82962; 83605; 84145; 85025; 85610; 87040; 87086; 87186; 93005; 99285; J0696; J1644; J2270; J7030

== ENCOUNTER 2023-01-22 08:57 | Emergency (ER) | payer MEDICARE, OTHER ==
[~2023-01-22] VITALS: Ht 167.6 cm; Wt 63.6 kg
[~2023-01-22 08:57] MED LIST changes: -CEPH-558 PO; +LEVO-72 PO
[2023-01-22 09:10] VITALS: BP 131/82
== END 2023-01-22 10:48 | disposition home or self-care (01) ==
LOC: EMS 08:58
DX: R33.9 Retention of urine, unspecified (principal); T83.091A Other mechanical complication of indwelling urethral catheter, initial encounter; E11.9 Type 2 diabetes mellitus without complications; I10 Essential (primary) hypertension; F17.210 Nicotine dependence, cigarettes, uncomplicated; N40.0 Benign prostatic hyperplasia without lower urinary tract symptoms; Z89.029 Acquired absence of unspecified finger(s)
CPT/HCPCS: 51702; 82962; 99284

== ENCOUNTER 2023-01-27 16:45 | Emergency (ER) | payer MEDICARE, OTHER ==
[~2023-01-27] VITALS: Ht 162.6 cm; Wt 61.4 kg
[2023-01-27 17:51] VITALS: BP 127/78
== END 2023-01-27 19:03 | disposition home or self-care (01) ==
LOC: EMS 16:46
DX: T83.091A Other mechanical complication of indwelling urethral catheter, initial encounter (principal); R33.9 Retention of urine, unspecified; E11.9 Type 2 diabetes mellitus without complications; I10 Essential (primary) hypertension; F17.210 Nicotine dependence, cigarettes, uncomplicated; Y92.89 Other specified places as the place of occurrence of the external cause
CPT/HCPCS: 51702; 99284; Z7502

== ENCOUNTER 2023-02-16 10:40 | Emergency (ER) | payer MEDICARE, OTHER ==
[~2023-02-16] VITALS: Ht 157.5 cm; Wt 54.5 kg
[2023-02-16 11:13] VITALS: BP 116/69
== END 2023-02-16 12:24 | disposition home or self-care (01) ==
LOC: EMS 10:43
DX: T83.091A Other mechanical complication of indwelling urethral catheter, initial encounter (principal); E11.9 Type 2 diabetes mellitus without complications; I10 Essential (primary) hypertension; F17.210 Nicotine dependence, cigarettes, uncomplicated; N40.0 Benign prostatic hyperplasia without lower urinary tract symptoms; Z89.029 Acquired absence of unspecified finger(s); Y92.89 Other specified places as the place of occurrence of the external cause
CPT/HCPCS: 99281; Z7502

== ENCOUNTER 2023-03-22 07:47 | Emergency (ER) | payer MEDICARE, OTHER ==
[~2023-03-22] VITALS: Ht 165.1 cm; Wt 63.6 kg
[2023-03-22 11:43] LABS: APPEARANCE,URINE HAZY (CLEAR); BILIRUBIN,URINE NEGATIVE (NEGATIVE); GLUCOSE, URINE (UA) NEGATIVE (NEGATIVE); KETONES,URINE NEGATIVE (NEGATIVE); LEUKOCYTE ESTERASE ,URINE LARGE (NEGATIVE); NITRATE,URINE POSITIVE (NEGATIVE); OCCULT BLOOD,URINE TRACE (NEGATIVE); PROTEIN,URINE NEGATIVE (NEGATIVE); UROBILINOGEN,URINE <=1.0 mg/dL (<=1.0)
[2023-03-22 11:48] LABS: BACTERIA,URINE Many /HPF (None Seen); RBC,URINE 0-2 /HPF (0-2); WBC,URINE 26-50 /HPF (0-5)
[2023-03-22] MEDS ORDERED: LIDOCAINE/PF 1% 2 ML VIAL IM ONE (12:30)
[2023-03-22] MEDS ORDERED: CefTRIAXone SODIUM 1 GM/VIAL IM ONE (12:30)
[2023-03-22 14:15] VITALS: BP 132/80
== END 2023-03-22 14:52 | disposition home or self-care (01) ==
LOC: EMS 07:54
DX: T83.091A Other mechanical complication of indwelling urethral catheter, initial encounter (principal); N39.0 Urinary tract infection, site not specified; E11.9 Type 2 diabetes mellitus without complications; I10 Essential (primary) hypertension; F17.210 Nicotine dependence, cigarettes, uncomplicated; Y92.89 Other specified places as the place of occurrence of the external cause
CPT/HCPCS: 99285; 81001; 87086; 87186; 96372; J0696; J3490

== ENCOUNTER 2023-04-23 10:12 | Emergency (ER) | payer MEDICARE, OTHER ==
[~2023-04-23] VITALS: Ht 167.6 cm; Wt 68.2 kg
[2023-04-23 10:16] VITALS: TEMP 98.8
[2023-04-23 12:20] VITALS: BP 133/76; PULSE 79; RESP 18
== END 2023-04-23 13:21 | disposition home or self-care (01) ==
LOC: EMS 10:19
DX: T83.091A Other mechanical complication of indwelling urethral catheter, initial encounter (principal); E11.9 Type 2 diabetes mellitus without complications; I10 Essential (primary) hypertension; F17.210 Nicotine dependence, cigarettes, uncomplicated; Y92.89 Other specified places as the place of occurrence of the external cause
CPT/HCPCS: 82962; 99282